=== PATIENT | female | born 1955 | race Caucasian/White ===

== ENCOUNTER → 2020-12-26 | Outpatient (CLI) | payer SELFPAY | END | disposition home or self-care (01) | LOC: LAB SHORT 11:21 | DX: L57.0 Actinic keratosis (principal) | CPT/HCPCS: 88305 ==

== ENCOUNTER → 2022-01-04 | Outpatient (CLI) | payer MEDICARE, BC | LOC: LAB 11:08 → PLD 11:08 → LAB SHORT 11:08 | DX: D48.5 Neoplasm of uncertain behavior of skin (principal) | CPT/HCPCS: 88305 ==

== ENCOUNTER → 2023-04-12 | Outpatient (CLI) | payer MEDICARE, BC ==
[2023-04-17 23:22] LABS: HPV GENOTYPE 16 Not Detected; HPV GENOTYPE 18 Not Detected; HPV HIGH RISK Detected; HPV SOURCE Cervical
== END ==
LOC: LAB 17:04 → LAB SHORT 17:04
PROVIDERS: Family Medicine
DX: Z01.419 Encounter for gynecological examination (general) (routine) without abnormal findings (principal)
CPT/HCPCS: 87624; G0123

== ENCOUNTER → 2023-06-27 | Outpatient (CLI) | payer MEDICARE, BC | END | disposition home or self-care (01) | LOC: LAB SHORT 11:02 → LAB 11:02 | DX: Z09 Encounter for follow-up examination after completed treatment for conditions other than malignant neoplasm (principal); Z86.19 Personal history of other infectious and parasitic diseases | CPT/HCPCS: 88305; 88341; 88342 ==

== ENCOUNTER → 2023-07-09 | Outpatient (CLI) | payer MEDICARE, BC | END | disposition home or self-care (01) | LOC: LAB 11:32 → LAB SHORT 11:32 | DX: D48.5 Neoplasm of uncertain behavior of skin (principal); L82.0 Inflamed seborrheic keratosis | CPT/HCPCS: 88305 ==

== ENCOUNTER → 2024-09-01 | Outpatient (CLI) | payer MEDICARE, BC ==
[2024-09-08 07:18] LABS: HPV GENOTYPE 16 BY TMA Not Detected; HPV GENOTYPE 18/45 BY TMA Not Detected; HPV HIGH RISK BY TMA Detected; HPV SOURCE Cervical; HPVG SOURCE Cervical
== END ==
LOC: LAB SHORT 08:00 → LAB 08:00
PROVIDERS: Family Medicine
DX: Z01.419 Encounter for gynecological examination (general) (routine) without abnormal findings (principal)
CPT/HCPCS: 87624; 87625; G0123